=== PATIENT | female | born 1975 ===

== ENCOUNTER 2023-01-22 12:52 | Emergency (ER) | payer OTHER ==
[~2023-01-22] VITALS: Ht 162.6 cm; Wt 86.2 kg
[2023-01-22] MEDS ORDERED: ALPRAZOLAM0.5 MG PO (13:05)
[2023-01-22] MEDS ORDERED: CITALOPRAM HBR20 MG PO (13:05)
== END 2023-01-22 17:20 | disposition home or self-care (01) ==
LOC: ER 12:52
DX: M79.671 Pain in right foot (principal)